=== PATIENT | female | born 1980 | race African-American/Black ===

== ENCOUNTER 2019-11-02 16:23 | Emergency (ER) | payer OTHER, MEDICAID ==
[~2019-11-02] VITALS: Ht 165.1 cm; Wt 79.4 kg
[~2019-11-02 16:23] MED LIST: ABILIFY; GABA-532 PO; HYDR-3326 PO; TRAZ-257 PO
--- NOTE | 2019-11-02 16:58 | NUR ---
Dr. Chaudhary at bedside for MSE
[2019-11-02] MEDS ORDERED: LIDOCAINE 2%-EPI 1:100,000 20 ML VIAL ONE (17:12)
[2019-11-02] MEDS ORDERED: LIDOCAINE 2%-EPI 1:100,000 20 ML VIAL TP ONE (17:15)
[2019-11-02] MEDS ORDERED: BACITRACIN ZINC OINT 15 GM TUBE TOP STA (17:27)
--- NOTE | 2019-11-02 17:43 | NUR ---
Patient discharged to home in stable condition. Written and verbal after care instructions given. Patient verbalizes understanding of instructions. Stressed follow up or return to ER for worsening s/s. Patient ambulated with steady gait. NAD noted
[2019-11-02 17:48] VITALS: BP 116/81
[2019-11-04] MEDS ORDERED: TETRACAINE HCL 0.5% OPHT DROP 2 ML BOTTLE ONE (23:01)
[2019-11-04] MEDS ORDERED: ONDANSETRON ODT 4 MG TAB.RAPDIS ONE (23:01)
== END 2019-11-02 17:45 | disposition home or self-care (01) ==
LOC: ER 16:25
DX: L02.416 Cutaneous abscess of left lower limb (principal); F31.9 Bipolar disorder, unspecified; J45.909 Unspecified asthma, uncomplicated; Z79.899 Other long term (current) drug therapy
CPT/HCPCS: A4663; Q0162